=== PATIENT | female | born 1985 | race Hispanic/Latino ===

== ENCOUNTER 2016-08-30 15:21 | Inpatient (IN) | payer OTHER ==
[2016-08-30] VITALS (10 sets, daily range): BP systolic 105–125; BP diastolic 59–81
[~2016-08-30] VITALS: Ht 170.2 cm; Wt 65.7 kg
[~2016-08-30 15:21] MED LIST: MOTRIN800 MG PO; PERCOCET 5/31 TABLET PO; SYNTHROID150 MCG PO; VITAMIN D2000 UNIT PO
[2016-08-30 16:20] LABS: EOSINOPHIL (%) 0.3 % (0-5); HEMATOCRIT 39.1 % (36.0-46.0); IMMATURE GRANULOCYTE (%) 0.6 % (0.0-0.7); IMMATURE GRANULOCYTE COUNT 0.1 K/uL; INSTRUMENT ABS NEUTROPHIL CT 7.4 K/uL; LYMPHOCYTE COUNT 2.1 K/uL (1.0-2.8); MCH 32.1 PG (29.0-34.0); MCV 94.4 FL (83-99); MEAN PLAT.VOLUME 11.2 uM^3 (9.5-12.4); MONOCYTE (%) 7.2 % (3-12); MONOCYTE COUNT 0.8 K/uL (0-0.8); NEUTROPHIL (%) 71.1 % (45-76); NEUTROPHIL COUNT 7.4 K/uL (1.8-6.4); PLATELET COUNT 166 K/uL (156-360); RBC DIS.WIDTH-CV 12.5 % (11.8-14.6); RBC DIS.WIDTH-SD 43.3 % (39-53); RED BLOOD COUNT 4.14 M/uL (3.80-5.20); WHITE BLOOD COUNT 10.4 K/uL (4.1-10.2)
[2016-08-30] MEDS ORDERED: IBUPROFEN800 MG PO (23:50)
[2016-08-31] VITALS (7 sets, daily range): BP systolic 110–129; BP diastolic 66–80
[2016-09-01 07:56] VITALS: BP 110/70
== END 2016-09-01 10:45 | disposition home or self-care (01) | DRG 775 ==
LOC: LDRP-OP → 2WEST 15:22
PROVIDERS: Midwife
DX: O36.5930 Maternal care for other known or suspected poor fetal growth, third trimester, not applicable or unspecified (principal); O60.14X0 Preterm labor third trimester with preterm delivery third trimester, not applicable or unspecified; O41.03X0 Oligohydramnios, third trimester, not applicable or unspecified; O99.824 Streptococcus B carrier state complicating childbirth; O76 Abnormality in fetal heart rate and rhythm complicating labor and delivery; O99.284 Endocrine, nutritional and metabolic diseases complicating childbirth; E03.9 Hypothyroidism, unspecified; Z3A.36 36 weeks gestation of pregnancy; Z37.0 Single live birth
CPT/HCPCS: 85025; J0702; J2540; J7120